=== PATIENT | female | born 1970 | race Caucasian/White ===

== ENCOUNTER 2016-07-15 19:42 | Emergency (ER) | payer MEDICAID ==
[~2016-07-15] VITALS: Ht 160 cm; Wt 83.9 kg
[~2016-07-15 19:42] MED LIST: VENL75TA54 PO
[2016-07-15 19:48] VITALS: BP_SYST 166
[2016-07-15 20:14] VITALS: BP_SYST 150
== END 2016-07-15 20:14 | disposition home or self-care (01) ==
LOC: SED 19:42
DX: B43.2 Subcutaneous pheomycotic abscess and cyst (principal); Z88.6 Allergy status to analgesic agent
CPT/HCPCS: 99283

== ENCOUNTER 2017-08-19 00:20 | Emergency (ER) | payer MEDICAID, OTHER ==
[~2017-08-19] VITALS: Ht 157.5 cm; Wt 81.6 kg
[2017-08-19 00:20] VITALS: BP_SYST 154
[2017-08-19 01:00] VITALS: BP_SYST 135
== END 2017-08-19 01:00 | disposition home or self-care (01) ==
LOC: MERGE 00:20 → SED 00:20
DX: H11.32 Conjunctival hemorrhage, left eye (principal); I10 Essential (primary) hypertension; Z88.1 Allergy status to other antibiotic agents
CPT/HCPCS: 99283